=== PATIENT | male | born 1965 | race Caucasian/White ===

== ENCOUNTER 2016-12-26 16:25 | Inpatient (IN) | payer BC, OTHER ==
[~2016-12-26] VITALS: Ht 180.3 cm; Wt 87.5 kg
[2016-12-26 18:09] LABS: BG BASE EXCESS 1.3 mmol/L (-2.0-2.0); BG CARBOXYHEMOGLOBIN 0.7 % (0.5-1.5); BG DEOXYHEMOGLOBIN 4.9 % (0.0-5.0); BG HCO3 ACT 25.1 mmol/L (22.0-26.0); BG METHEMOGLOBIN 0.3 % (0.0-1.5); BG OXYGEN SATURATION 95.1 % (92.0-98.5); BG OXYHEMOGLOBIN 94.1 % (94.0-97.0); BG PCO2 37.5 mmHg (35.0-45.0); BG PH 7.444 (7.350-7.450); BG PO2 72.7 mmHg (75.0-100.0); BG SAMPLE SITE RIGHT RADIAL; BG TOTAL HEMOGLOBIN 16.3 g/dL (12.0-18.0); BG VENT MODE ROOM AIR
[2016-12-26 18:14] LABS: BASOPHILS % 0.9 % (0.0-2.0); CHLORIDE 106 mEq/L (98-107); EOSINOPHILS % 3.1 % (0.0-5.0); HEMATOCRIT. 46.5 % (42.0-52.0); HEMOGLOBIN. 15.6 g/dL (14.0-18.0); LYMPHOCYTES % 26.9 % (20.0-50.0); MEAN CORPUSCULAR VOLUME 89.5 fL (80.0-94.0); MEAN PLATELET VOLUME 9.3 fl (7.4-10.4); MONOCYTES % 7.4 % (2.0-8.0); NEUTROPHILS % 61.7 % (40.0-76.0); PLATELET 225 x1000/uL (130-400); RED CELL DISTRIBUTION WIDTH 13.2 % (11.6-14.6)
[2016-12-26 18:22] LABS: CARBON DIOXIDE 29 mEq/L (21-32); ETHANOL BLOOD < 10 mg/dL
[2016-12-26 18:53] LABS: CLARITY URINE CLEAR (CLEAR); COLOR URINE YELLOW (YELLOW); GLUCOSE URINE NEGATIVE (NEGATIVE); KETONES URINE NEGATIVE (NEGATIVE); LEUKOCYTE ESTERASE URINE NEGATIVE (NEGATIVE); NITRITE URINE NEGATIVE (NEGATIVE); OCCULT BLOOD URINE NEGATIVE (NEGATIVE); PH URINE 7.5 (4.5-8.0); PROTEIN URINE NEGATIVE (NEGATIVE); SPECIFIC GRAVITY URINE 1.012 (1.005-1.030); UROBILINOGEN URINE 0.2 E.U./dL (0.2-1.0)
[2016-12-26 19:01] LABS: *AMPHETAMINES SCREEN URINE NEGATIVE (NEGATIVE); *BARBITURATES SCREEN URINE NEGATIVE (NEGATIVE); *BENZODIAZEPINES SCREEN URINE NEGATIVE (NEGATIVE); *COCAINE SCREEN URINE NEGATIVE (NEGATIVE); CANNABINOID URINE SCREEN NEGATIVE (NEGATIVE); METHADONE URINE SCREEN NEGATIVE (NEGATIVE); OPIATES URINE SCREEN NEGATIVE (NEGATIVE); PHENCYCLIDINE URINE SCREEN NEGATIVE (NEGATIVE)
[2016-12-26] MEDS ORDERED: NICARDIPINE 50 MG in SODIUM CHLORIDE 0.9% 230 ML IV PRN (20:00)
[2016-12-26] MEDS ORDERED: DIPHENHYDRAMINE 50MG/ML VIAL IV PRN (20:00)
[2016-12-26] MEDS ORDERED: ONDANSETRON HCL 4MG/2ML VIAL IV PRN (20:00)
[2016-12-26 21:15] VITALS: BP 124/71
[2016-12-26] MEDS ORDERED: DEXAMETHASONE 10 MG/ML VIAL IV ONE (21:15)
[2016-12-26 21:23] LABS: PROTHROMBIN TIME 10.6 sec (9.4-11.6)
[2016-12-26 21:30] VITALS: BP 117/67
[2016-12-26 22:00] VITALS: BP_SYST 124; BP_SYST 128; BP_DIAS 71; BP_DIAS 75
[2016-12-26] MEDS: PHENYTOIN SODIUM 100MG/2ML VIAL IV SCH (22:17)
[2016-12-26] MEDS: DEXT 5%/LACTATED RINGERS 1,000 ML IV SCH (22:18)
[2016-12-26 22:30] VITALS: BP 124/54
[2016-12-26 23:00] VITALS: BP 113/71
[2016-12-26 23:30] VITALS: BP 122/75
[2016-12-26] MEDS: DEXAMETHASONE 4MG/ML 1ML VIAL IV SCH (23:36)
[2016-12-26] MEDS: MORPHINE SULFATE 2 MG/ML CPJ (NOT FOR IM USE) IV PRN (23:37)
[2016-12-27] VITALS (47 sets, daily range): BP systolic 85–137; BP diastolic 47–97
[2016-12-27] MEDS: MORPHINE SULFATE 2 MG/ML CPJ (NOT FOR IM USE) IV PRN ×6 (03:26→22:19)
[2016-12-27] MEDS: DEXAMETHASONE 4MG/ML 1ML VIAL IV SCH ×4 (05:32→23:35)
[2016-12-27] MEDS: PHENYTOIN SODIUM 100MG/2ML VIAL IV SCH ×3 (05:32→22:04)
[2016-12-27 05:48] LABS: HEMATOCRIT. 46.5 % (42.0-52.0); HEMOGLOBIN. 15.6 g/dL (14.0-18.0); MEAN CORPUSCULAR HEMOGLOBIN 29.9 pg (28.0-32.0); MEAN PLATELET VOLUME 9.9 fl (7.4-10.4); PLATELET 220 x1000/uL (130-400); RED BLOOD CELL COUNT 5.22 mill/uL (4.7-6.1); RED CELL DISTRIBUTION WIDTH 13.5 % (11.6-14.6)
[2016-12-27 06:49] LABS: CHLORIDE 107 mEq/L (98-107)
[2016-12-27 06:55] LABS: CARBON DIOXIDE 22 mEq/L (21-32); PHOSPHORUS 2.2 mg/dL (2.5-4.9)
[2016-12-27] MEDS: PANTOPRAZOLE SODIUM 40 MG/VIAL IV SCH (10:57)
[2016-12-27] MEDS ORDERED: SODIUM CHLORIDE 0.9% 10ML VIAL ONE (12:13)
[2016-12-27] MEDS ORDERED: IOHEXOL-350 100 ML BOTTLE ONE (12:13)
[2016-12-27 12:23] LABS: PLATELET ESTIMATE NORMAL
[2016-12-27] MEDS: DEXT 5%/LACTATED RINGERS 1,000 ML IV SCH (14:31)
[2016-12-28] VITALS (46 sets, daily range): BP systolic 102–143; BP diastolic 55–89
[2016-12-28] MEDS: MORPHINE SULFATE 2 MG/ML CPJ (NOT FOR IM USE) IV PRN ×4 (04:12→20:18)
[2016-12-28] MEDS: PHENYTOIN SODIUM 100MG/2ML VIAL IV SCH ×3 (05:05→21:38)
[2016-12-28] MEDS: DEXAMETHASONE 4MG/ML 1ML VIAL IV SCH ×4 (05:05→23:48)
[2016-12-28 05:44] LABS: BASOPHILS % 0.1 % (0.0-2.0); HEMATOCRIT. 43.1 % (42.0-52.0); HEMOGLOBIN. 14.7 g/dL (14.0-18.0); LYMPHOCYTES % 9.3 % (20.0-50.0); MEAN CORPUSCULAR HEMOGLOBIN 30.2 pg (28.0-32.0); MEAN CORPUSCULAR VOLUME 88.7 fL (80.0-94.0); MEAN PLATELET VOLUME 9.9 fl (7.4-10.4); NEUTROPHILS % 87.6 % (40.0-76.0); PLATELET 215 x1000/uL (130-400); RED BLOOD CELL COUNT 4.86 mill/uL (4.7-6.1); RED CELL DISTRIBUTION WIDTH 13.4 % (11.6-14.6)
[2016-12-28 06:12] LABS: CARBON DIOXIDE 25 mEq/L (21-32); CHLORIDE 106 mEq/L (98-107)
[2016-12-28] MEDS: PANTOPRAZOLE SODIUM 40 MG/VIAL IV SCH (08:42)
[2016-12-28] MEDS: DEXT 5%/LACTATED RINGERS 1,000 ML IV SCH (08:43)
[2016-12-28] MEDS ORDERED: IOHEXOL-300 100 ML BOTTLE ONE (14:52)
[2016-12-28] MEDS ORDERED: SODIUM CHLORIDE 0.9% 10ML VIAL ONE (14:52)
[2016-12-28] MEDS ORDERED: PHENYTOIN SODIUM 1,000 MG in SODIUM CHLORIDE 0.9% 100 ML IV NR (18:30)
[2016-12-29] VITALS (38 sets, daily range): BP systolic 102–130; BP diastolic 53–89
[2016-12-29] MEDS: MORPHINE SULFATE 2 MG/ML CPJ (NOT FOR IM USE) IV PRN ×5 (03:11→22:40)
[2016-12-29] MEDS: DEXAMETHASONE 4MG/ML 1ML VIAL IV SCH ×2 (05:13→11:57)
[2016-12-29] MEDS: PHENYTOIN SODIUM 100MG/2ML VIAL IV SCH (05:13)
[2016-12-29 05:32] LABS: BASOPHILS % 0.2 % (0.0-2.0); HEMATOCRIT. 41.8 % (42.0-52.0); HEMOGLOBIN. 14.1 g/dL (14.0-18.0); LYMPHOCYTES % 12.5 % (20.0-50.0); MEAN CORPUSCULAR HEMOGLOBIN 30.1 pg (28.0-32.0); MEAN CORPUSCULAR VOLUME 89.4 fL (80.0-94.0); MEAN PLATELET VOLUME 9.6 fl (7.4-10.4); MONOCYTES % 4.4 % (2.0-8.0); NEUTROPHILS % 82.9 % (40.0-76.0); PLATELET 211 x1000/uL (130-400); RED BLOOD CELL COUNT 4.68 mill/uL (4.7-6.1); RED CELL DISTRIBUTION WIDTH 13.8 % (11.6-14.6)
[2016-12-29 05:49] LABS: CARBON DIOXIDE 24 mEq/L (21-32); CHLORIDE 107 mEq/L (98-107)
[2016-12-29] MEDS: PANTOPRAZOLE SODIUM 40 MG/VIAL IV SCH (09:12)
[2016-12-29] MEDS: DEXT 5%/LACTATED RINGERS 1,000 ML IV SCH (13:38)
[2016-12-29] MEDS: PHENYTOIN SODIUM EXTENDED 100MG CAPSULE PO SCH ×2 (15:21→21:13)
[2016-12-30] VITALS (26 sets, daily range): BP systolic 99–130; BP diastolic 57–89
[2016-12-30] MEDS: MORPHINE SULFATE 2 MG/ML CPJ (NOT FOR IM USE) IV PRN ×3 (00:57→20:35)
[2016-12-30 05:19] LABS: BASOPHILS % 0.2 % (0.0-2.0); EOSINOPHILS % 0.2 % (0.0-5.0); HEMATOCRIT. 42.1 % (42.0-52.0); HEMOGLOBIN. 14.3 g/dL (14.0-18.0); LYMPHOCYTES % 40.7 % (20.0-50.0); MEAN CORPUSCULAR HEMOGLOBIN 30.1 pg (28.0-32.0); MEAN CORPUSCULAR VOLUME 88.8 fL (80.0-94.0); MEAN PLATELET VOLUME 9.5 fl (7.4-10.4); MONOCYTES % 8.2 % (2.0-8.0); NEUTROPHILS % 50.7 % (40.0-76.0); PLATELET 179 x1000/uL (130-400); RED BLOOD CELL COUNT 4.74 mill/uL (4.7-6.1); RED CELL DISTRIBUTION WIDTH 13.6 % (11.6-14.6)
[2016-12-30 06:07] LABS: CARBON DIOXIDE 26 mEq/L (21-32); CHLORIDE 105 mEq/L (98-107)
[2016-12-30] MEDS: PHENYTOIN SODIUM EXTENDED 100MG CAPSULE PO SCH ×3 (06:12→21:17)
[2016-12-30] MEDS: PANTOPRAZOLE SODIUM 40 MG/VIAL IV SCH (08:41)
[2016-12-30] MEDS ORDERED: DEXAMETHASONE 4MG/ML 1ML VIAL IV SCH (09:00)
[2016-12-30] MEDS: DEXT 5%/LACTATED RINGERS 1,000 ML IV SCH (14:00)
[2016-12-30] MEDS: MIRTAZAPINE 15MG TABLET PO SCH (21:17)
[2016-12-31] VITALS (20 sets, daily range): BP systolic 105–143; BP diastolic 50–89
[2016-12-31] MEDS: DEXT 5%/LACTATED RINGERS 1,000 ML IV SCH ×2 (06:10→18:25)
[2016-12-31] MEDS: PHENYTOIN SODIUM EXTENDED 100MG CAPSULE PO SCH ×3 (06:10→21:05)
[2016-12-31] MEDS ORDERED: GADOBENATE DIMEGLUMINE 529 MG/ML 10ML IV ONE (09:04)
[2016-12-31] MEDS: DEXAMETHASONE 4MG/ML 1ML VIAL IV SCH (09:52)
[2016-12-31] MEDS: PANTOPRAZOLE SODIUM 40 MG/VIAL IV SCH (09:52)
[2016-12-31] MEDS: MIRTAZAPINE 15MG TABLET PO SCH (21:05)
[2017-01-01 00:48] VITALS: BP 128/75
[2017-01-01] MEDS ORDERED: MORPHINE SULFATE 2 MG/ML CPJ (NOT FOR IM USE) IV PRN (01:30)
[2017-01-01 04:00] VITALS: BP 113/70
[2017-01-01] MEDS: PHENYTOIN SODIUM EXTENDED 100MG CAPSULE PO SCH ×3 (06:20→21:06)
[2017-01-01 07:51] VITALS: BP 112/59
[2017-01-01 07:51] LABS: BASOPHILS % 0.2 % (0.0-2.0); EOSINOPHILS % 2.8 % (0.0-5.0); HEMATOCRIT. 45.6 % (42.0-52.0); HEMOGLOBIN. 15.2 g/dL (14.0-18.0); LYMPHOCYTES % 35.8 % (20.0-50.0); MEAN CORPUSCULAR HEMOGLOBIN 29.8 pg (28.0-32.0); MEAN CORPUSCULAR VOLUME 89.7 fL (80.0-94.0); MEAN PLATELET VOLUME 9.3 fl (7.4-10.4); MONOCYTES % 8.4 % (2.0-8.0); NEUTROPHILS % 52.8 % (40.0-76.0); PLATELET 185 x1000/uL (130-400); RED BLOOD CELL COUNT 5.09 mill/uL (4.7-6.1); RED CELL DISTRIBUTION WIDTH 13.4 % (11.6-14.6)
[2017-01-01 08:04] LABS: CARBON DIOXIDE 27 mEq/L (21-32); CHLORIDE 107 mEq/L (98-107)
[2017-01-01] MEDS: PANTOPRAZOLE SODIUM 40 MG/VIAL IV SCH (09:05)
[2017-01-01] MEDS: DEXT 5%/LACTATED RINGERS 1,000 ML IV SCH (09:05)
[2017-01-01] MEDS: DEXAMETHASONE 4MG/ML 1ML VIAL IV SCH (09:05)
[2017-01-01 12:00] VITALS: BP 105/65
[2017-01-01 16:00] VITALS: BP 100/61
[2017-01-01] MEDS: ACETAMINOPHEN 325MG TABLET PO PRN (17:37)
[2017-01-01 20:00] VITALS: BP 105/60
[2017-01-01] MEDS: MIRTAZAPINE 15MG TABLET PO SCH (21:06)
[2017-01-02] VITALS: BP 107/66
[2017-01-02 04:00] VITALS: BP 100/58
[2017-01-02] MEDS: PHENYTOIN SODIUM EXTENDED 100MG CAPSULE PO SCH ×3 (06:04→21:49)
[2017-01-02] MEDS: DEXT 5%/LACTATED RINGERS 1,000 ML IV SCH (06:09)
[2017-01-02 06:34] LABS: BASOPHILS % 0.5 % (0.0-2.0); EOSINOPHILS % 3.2 % (0.0-5.0); HEMATOCRIT. 45.4 % (42.0-52.0); HEMOGLOBIN. 15.3 g/dL (14.0-18.0); LYMPHOCYTES % 34.4 % (20.0-50.0); MEAN CORPUSCULAR HEMOGLOBIN 30.4 pg (28.0-32.0); MEAN CORPUSCULAR VOLUME 89.9 fL (80.0-94.0); MEAN PLATELET VOLUME 9.3 fl (7.4-10.4); MONOCYTES % 7.3 % (2.0-8.0); NEUTROPHILS % 54.6 % (40.0-76.0); PLATELET 171 x1000/uL (130-400); RED BLOOD CELL COUNT 5.05 mill/uL (4.7-6.1); RED CELL DISTRIBUTION WIDTH 13.6 % (11.6-14.6)
[2017-01-02 07:12] LABS: CARBON DIOXIDE 25 mEq/L (21-32); CHLORIDE 106 mEq/L (98-107)
[2017-01-02 08:18] VITALS: BP 112/67
[2017-01-02] MEDS: DEXAMETHASONE 4MG/ML 1ML VIAL IV SCH (08:56)
[2017-01-02] MEDS: PANTOPRAZOLE SODIUM 40 MG/VIAL IV SCH (08:56)
[2017-01-02] MEDS ORDERED: PHENYTOIN SODIUM 700 MG in SODIUM CHLORIDE 0.9% 100 ML IV SCH (10:00)
[2017-01-02 11:24] VITALS: BP 91/53
[2017-01-02 16:42] VITALS: BP 108/76
[2017-01-02] MEDS: ACETAMINOPHEN 325MG TABLET PO PRN (16:49)
[2017-01-02 20:00] VITALS: BP 104/61
[2017-01-02] MEDS: MIRTAZAPINE 15MG TABLET PO SCH (21:49)
[2017-01-03] VITALS: BP 105/72
[2017-01-03 04:00] VITALS: BP 102/66
[2017-01-03] MEDS: PHENYTOIN SODIUM EXTENDED 100MG CAPSULE PO SCH ×2 (06:29→13:57)
[2017-01-03 06:31] LABS: BASOPHILS % 0.4 % (0.0-2.0); EOSINOPHILS % 3.7 % (0.0-5.0); HEMATOCRIT. 46.3 % (42.0-52.0); HEMOGLOBIN. 15.8 g/dL (14.0-18.0); LYMPHOCYTES % 29.2 % (20.0-50.0); MEAN CORPUSCULAR HEMOGLOBIN 30.2 pg (28.0-32.0); MEAN CORPUSCULAR VOLUME 88.8 fL (80.0-94.0); MEAN PLATELET VOLUME 9.5 fl (7.4-10.4); MONOCYTES % 8.3 % (2.0-8.0); NEUTROPHILS % 58.4 % (40.0-76.0); PLATELET 167 x1000/uL (130-400); RED BLOOD CELL COUNT 5.21 mill/uL (4.7-6.1); RED CELL DISTRIBUTION WIDTH 13.6 % (11.6-14.6)
[2017-01-03 08:00] VITALS: BP 103/62
[2017-01-03 08:31] LABS: CARBON DIOXIDE 26 mEq/L (21-32); CHLORIDE 105 mEq/L (98-107)
[2017-01-03] MEDS: PANTOPRAZOLE SODIUM 40 MG/VIAL IV SCH (10:38)
[2017-01-03] MEDS: ACETAMINOPHEN 325MG TABLET PO PRN (10:39)
[2017-01-03 12:00] VITALS: BP 111/74
[2017-01-03 12:38] VITALS: BP 99/60
[2017-01-03 16:00] VITALS: BP 109/68
[2017-01-03] MEDS ORDERED: SIMPONI (16:39)
== END 2017-01-03 16:10 | DRG 64 ==
LOC: ER 16:59 → MICUSO 19:26 → SUPCPDRO 19:45 → ENRESERV 19:46 → EDBEDREQ 19:49 → EDBEDREQTM 19:49 → 6WST 12-31 17:45
PROVIDERS: ADMIT Family Medicine Adult Medicine; ATTEND Family Medicine Adult Medicine
DX: I61.1 Nontraumatic intracerebral hemorrhage in hemisphere, cortical (principal); G93.6 Cerebral edema; K51.90 Ulcerative colitis, unspecified, without complications; R47.01 Aphasia; F12.90 Cannabis use, unspecified, uncomplicated; I10 Essential (primary) hypertension; F41.9 Anxiety disorder, unspecified; G43.909 Migraine, unspecified, not intractable, without status migrainosus; R47.1 Dysarthria and anarthria; I60.9 Nontraumatic subarachnoid hemorrhage, unspecified; R00.1 Bradycardia, unspecified; Z86.73 Personal history of transient ischemic attack (TIA), and cerebral infarction without residual deficits
CPT/HCPCS: 36415; 36600; 70450; 70496; 70553; 71260; 74177; 80048; 80053; 80185; 80305; 81003; 82375; 82378; 82805; 82962; 83735; 84100; 85025; 85610; 85730; 92523; 92610; 93005; 93306; 93970; 97112; 97116; 97162; 97166; 97530; 99285; A4216; A6261; A9577; C1893; C9113; G0482; J1100; J1165; J2270; J7050; J7121; Q9967

== ENCOUNTER 2017-01-03 16:00 | Inpatient (IN) | payer BC ==
[~2017-01-03] VITALS: Ht 180.3 cm; Wt 86.6 kg
[2017-01-03] MEDS ORDERED: SIMPONI (16:39)
[2017-01-03] MEDS ORDERED: TRAMADOL 50MG TABLET PO PRN (17:45)
[2017-01-03] MEDS ORDERED: ACETAMINOPHEN 325MG TABLET PO PRN (17:45)
[2017-01-03 17:52] VITALS: BP 100/60
[2017-01-03 18:00] VITALS: BP 120/80
[2017-01-03 20:00] VITALS: BP 112/70
[2017-01-03] MEDS: MIRTAZAPINE 15MG TABLET PO SCH (22:26)
[2017-01-03] MEDS: PHENYTOIN SODIUM EXTENDED 100MG CAPSULE PO SCH (22:26)
[2017-01-04] MEDS: PHENYTOIN SODIUM EXTENDED 100MG CAPSULE PO SCH ×3 (05:57→21:18)
[2017-01-04 08:00] VITALS: BP 100/63
[2017-01-04] MEDS: PANTOPRAZOLE 40MG DR TABLET PO SCH (08:36)
[2017-01-04] MEDS ORDERED: ONDANSETRON HCL 4MG/2ML VIAL IV PRN (10:30)
[2017-01-04 20:00] VITALS: BP 108/68
[2017-01-04] MEDS: MIRTAZAPINE 15MG TABLET PO SCH (21:18)
[2017-01-05 06:34] LABS: BASOPHILS % 0.6 % (0.0-2.0); HEMATOCRIT. 45.5 % (42.0-52.0); HEMOGLOBIN. 15.6 g/dL (14.0-18.0); LYMPHOCYTES % 26.9 % (20.0-50.0); MEAN CORPUSCULAR HEMOGLOBIN 30.6 pg (28.0-32.0); MEAN PLATELET VOLUME 9.2 fl (7.4-10.4); MONOCYTES % 10.7 % (2.0-8.0); NEUTROPHILS % 58.8 % (40.0-76.0); PLATELET 162 x1000/uL (130-400); RED BLOOD CELL COUNT 5.11 mill/uL (4.7-6.1); RED CELL DISTRIBUTION WIDTH 13.3 % (11.6-14.6)
[2017-01-05] MEDS: PHENYTOIN SODIUM EXTENDED 100MG CAPSULE PO SCH ×3 (06:38→20:57)
[2017-01-05 07:08] LABS: CARBON DIOXIDE 27 mEq/L (21-32); CHLORIDE 105 mEq/L (98-107)
[2017-01-05 08:27] VITALS: BP 100/64
[2017-01-05] MEDS: PANTOPRAZOLE 40MG DR TABLET PO SCH (09:44)
[2017-01-05 20:00] VITALS: BP 112/63
[2017-01-05] MEDS ORDERED: SIMPONI SQ SCH (20:30)
[2017-01-05] MEDS: MIRTAZAPINE 15MG TABLET PO SCH (20:57)
[2017-01-06] MEDS: PHENYTOIN SODIUM EXTENDED 100MG CAPSULE PO SCH ×3 (06:25→21:16)
[2017-01-06 08:00] VITALS: BP 112/64
[2017-01-06] MEDS: PANTOPRAZOLE 40MG DR TABLET PO SCH (09:18)
[2017-01-06 19:46] VITALS: BP 96/59
[2017-01-06] MEDS: MIRTAZAPINE 15MG TABLET PO SCH (21:16)
[2017-01-07] MEDS: PHENYTOIN SODIUM EXTENDED 100MG CAPSULE PO SCH ×3 (06:00→22:16)
[2017-01-07 08:00] VITALS: BP 97/62
[2017-01-07] MEDS: FAMOTIDINE 20MG TABLET PO SCH ×2 (09:32→21:12)
[2017-01-07 19:47] VITALS: BP 111/66
[2017-01-07] MEDS: MIRTAZAPINE 15MG TABLET PO SCH (21:12)
[2017-01-08] MEDS: PHENYTOIN SODIUM EXTENDED 100MG CAPSULE PO SCH ×3 (06:47→21:29)
[2017-01-08 08:00] VITALS: BP 109/67
[2017-01-08] MEDS: FAMOTIDINE 20MG TABLET PO SCH ×2 (08:49→21:00)
[2017-01-08 20:00] VITALS: BP 109/63
[2017-01-08] MEDS: MIRTAZAPINE 15MG TABLET PO SCH (21:29)
[2017-01-09] MEDS: PHENYTOIN SODIUM EXTENDED 100MG CAPSULE PO SCH ×3 (06:22→21:32)
[2017-01-09 06:56] LABS: EOSINOPHILS % 2.5 % (0.0-5.0); HEMATOCRIT. 43.9 % (42.0-52.0); HEMOGLOBIN. 14.9 g/dL (14.0-18.0); LYMPHOCYTES % 30.5 % (20.0-50.0); MEAN CORPUSCULAR HEMOGLOBIN 30.4 pg (28.0-32.0); MEAN CORPUSCULAR VOLUME 89.5 fL (80.0-94.0); MEAN PLATELET VOLUME 9.7 fl (7.4-10.4); MONOCYTES % 9.3 % (2.0-8.0); NEUTROPHILS % 56.7 % (40.0-76.0); PLATELET 184 x1000/uL (130-400); RED CELL DISTRIBUTION WIDTH 13.3 % (11.6-14.6)
[2017-01-09 07:15] LABS: CARBON DIOXIDE 28 mEq/L (21-32); CHLORIDE 106 mEq/L (98-107)
[2017-01-09 08:00] VITALS: BP 103/64
[2017-01-09] MEDS: FAMOTIDINE 20MG TABLET PO SCH ×2 (08:24→21:00)
[2017-01-09 20:00] VITALS: BP 108/65
[2017-01-09] MEDS: MIRTAZAPINE 15MG TABLET PO SCH (21:32)
[2017-01-10] MEDS: PHENYTOIN SODIUM EXTENDED 100MG CAPSULE PO SCH (05:47)
[2017-01-10 08:00] VITALS: BP 99/64
[2017-01-10] MEDS: FAMOTIDINE 20MG TABLET PO SCH (08:52)
[2017-01-10 11:54] VITALS: BP 99/64
== END 2017-01-10 14:10 | disposition home health service (06) | DRG 65 ==
PROVIDERS: ADMIT Psychiatry & Neurology Neurology; ATTEND Family Medicine Adult Medicine
DX: I61.1 Nontraumatic intracerebral hemorrhage in hemisphere, cortical (principal); K51.90 Ulcerative colitis, unspecified, without complications; R00.1 Bradycardia, unspecified; R47.01 Aphasia; F12.90 Cannabis use, unspecified, uncomplicated; G43.909 Migraine, unspecified, not intractable, without status migrainosus; R47.02 Dysphasia; R13.10 Dysphagia, unspecified; Z86.73 Personal history of transient ischemic attack (TIA), and cerebral infarction without residual deficits
CPT/HCPCS: 36415; 80048; 85025; 92523; 92610; 93970; 97112; 97116; 97162; 97167; 97530; 97535